=== PATIENT | female | born 1935 | race Caucasian/White ===

== ENCOUNTER 2022-01-01 07:39 | Emergency (ER) | payer MEDICARE ==
[~2022-01-01] VITALS: Ht 167.6 cm; Wt 72.6 kg
[2022-01-01 07:46] VITALS: BP 175/96
--- NOTE | 2022-01-01 07:46 | NUR ---
PATIENT W/C ASSISTED TO BED 4.
--- NOTE | 2022-01-01 07:50 | NUR ---
86 y/o F BIB FAMILY, C/O LAC WOUND AT FOREHEAD S/P FALL XTODAY. DENIES LOC. COVID TESTED POSITIVE 2 WEEKS AGO. PMH: HTN NKDA
[2022-01-01] MEDS ORDERED: LIDOCAINE/EPI 1% 1:100000 20 ML VIAL INJ ONE (07:55)
--- NOTE | 2022-01-01 08:00 | NUR ---
PT TAKEN TO CT VIA [facility], ACCOMPANIED BY BUILDING MAINTENANCE SUPERINTENDENT.
--- NOTE | 2022-01-01 08:51 | NUR ---
PT'S LAC CLEANED AND IRRIGATED WITH SALINE.
[2022-01-01] MEDS ORDERED: BACI1PAC6 TP (09:02)
[2022-01-01] MEDS ORDERED: BACITRACIN OINT 500 UNITS/GM PKT TP ONE (09:05)
[2022-01-01 09:32] VITALS: BP 160/87
--- NOTE | 2022-01-01 09:32 | NUR ---
PT ASSISTED BY WC TO DAUGHTERS CAR BY EMT TELMA
--- NOTE | 2022-01-01 09:32 | NUR ---
Patient discharged with v/s stable. Written and verbal after care instructions given and explained. Patient alert, oriented and verbalized understanding of instructions. WHEELCHAIRED to DAUGHTERS car. All questions addressed prior to discharge. ID band removed. Patient advised to follow up with PMD. Rx of BACITRACIN given. Patient educated on indication of medication including possible reaction and side effects. Opportunity to ask questions provided and answered.
== END 2022-01-01 09:32 | disposition home or self-care (01) ==
LOC: MED 07:39
DX: S01.81XA Laceration without foreign body of other part of head, initial encounter (principal); I10 Essential (primary) hypertension; Z79.899 Other long term (current) drug therapy; W01.0XXA Fall on same level from slipping, tripping and stumbling without subsequent striking against object, initial encounter; Y93.89 Activity, other specified; Y92.89 Other specified places as the place of occurrence of the external cause; Y99.8 Other external cause status
CPT/HCPCS: 12013; 70450; 90471; 90715; 99284; J2001

== ENCOUNTER 2022-02-11 20:49 | Emergency (ER) | payer MEDICARE ==
[~2022-02-11] VITALS: Ht 162.6 cm; Wt 69.9 kg
[~2022-02-11 20:49] MED LIST: BACI1PAC6 TP
[2022-02-11 21:15] VITALS: BP 152/81
[2022-02-11 21:41] LABS: BASOPHILS % (AUTO) 0.4 % (0.0-2.0); EOSINOPHILS # (AUTO) 0.1 K/uL (0-0.4); EOSINOPHILS % (AUTO) 1.4 % (0.0-4.0); HEMOGLOBIN 12.4 g/dL (12.0-16.0); LYMPHOCYTES # (AUTO) 2.1 K/uL (2.5-16.5); LYMPHOCYTES % (AUTO) 20.6 % (20.5-51.1); MEAN CORPUSCULAR HEMOGLOBIN 30 pg (27-31); MEAN CORPUSCULAR HGB CONC 34 g/dL (33-37); MEAN CORPUSCULAR VOLUME 89.3 fL (80-94); MONOCYTES # (AUTO) 0.8 K/uL (0.8-1.0); MONOCYTES % (AUTO) 7.8 % (1.7-9.3); NEUTROPHILS # (AUTO) 7.3 K/uL (1.8-7.7); NEUTROPHILS % (AUTO) 69.8 % (42.2-75.2); PLATELET COUNT (AUTO) 290 K/uL (140-450); RED BLOOD CELL COUNT(AUTO) 4.14 MIL/uL (4.20-5.40); RED CELL DISTRIBUTION WIDTH 14.2 % (11.6-13.7); WHITE BLOOD COUNT (AUTO) 10.4 K/uL (4.8-10.8)
[2022-02-11] MEDS ORDERED: KETOROLAC 30 MG/ML VIAL IVP ONE (21:50)
[2022-02-11 21:55] LABS: ALBUMIN 3.5 g/dL (3.4-5.0); ANION GAP 12.8 (8-16); ASPARTATE AMINOTRANSFERASE 14 U/L (15-37); CARBON DIOXIDE 27.7 mmol/L (21-32); CHLORIDE 103 mmol/L (98-107); CREATININE 1.1 mg/dL (0.6-1.3); GLUCOSE 142 mg/dL (74-106); POTASSIUM 3.5 mmol/L (3.5-5.1); SODIUM SERUM 140 mmol/L (136-145); TOTAL BILIRUBIN 0.5 mg/dL (0.0-1.0); UREA NITROGEN, BLOOD 18 mg/dL (7-18)
--- NOTE | 2022-02-11 22:10 | NUR ---
received pt from intake and placed to bed 10. pt currently a/o x4, gcs 15. able to move all extremities freely. pt is an 86 year old female with hx of htn coming in with intermitted back and chest pain that started 4 days ago. per pt, no heavy lifting done. denies dysuria.
[2022-02-11] MEDS ORDERED: ACET-8386 PO (23:17)
[2022-02-11 23:33] VITALS: BP 142/69
--- NOTE | 2022-02-11 23:33 | NUR ---
d/c with VSS. d/c education given. opportunity to ask questions given and answered. rx of norco given. IV site removed,bleeding controlled with sterile gauze and reinforced with tape.
== END 2022-02-11 23:33 | disposition home or self-care (01) ==
LOC: MED 20:49
DX: R07.89 Other chest pain (principal); I10 Essential (primary) hypertension; Z79.2 Long term (current) use of antibiotics
CPT/HCPCS: 36415; 71045; 80053; 83880; 84484; 85025; 93005; 96374; 99285; J1885; Q0092